=== PATIENT | female | born 1955 | race Caucasian/White ===

== ENCOUNTER 2022-12-26 11:35 | Outpatient (CLI) | payer MEDICARE, SELFPAY ==
--- NOTE | ~2022-12-26 | XR_ITS ---
EXAMINATION: XR hand BI arthritis min 3V DATE: 12/26/2022 12:27 INDICATION: Rheumatoid arthritis with rheumatoid factor. TECHNIQUE: 4 views of right hand and 4 views of left hand on 7 radiographs were obtained. COMPARISON: None. FINDINGS: RIGHT HAND: Bone alignment is normal. No fracture. There is moderate osteoarthrosis of first carpomet acarpal joint and mild osteoarthritis of third and fourth distal interphalangeal joints. LEFT HAND: Bone alignment is normal. No fracture. There is moderate osteoarthritis of first carpometa carpal joint and mild osteoarthritis of second distal interphalangeal joint. IMPRESSION: 1. Polyarticular osteoarthritis. No evidence of inflammatory arthropathy. Reviewed, dictated and finalized at location A.
--- NOTE | ~2022-12-26 | XR_ITS ---
EXAMINATION: XR foot RT standing 2V, XR foot LT standing 2V DATE: 12/26/2022 12:27 INDICATION: Rheumatoid arthritis with rheumatoid factor TECHNIQUE: 1. Standing dorsal plantar and lateral views of the right foot were obtained. 2. Standing dorsal plantar and lateral views of the left foot were obtained. COMPARISON: None. FINDINGS: Bilateral pes planus with flattening of the longitudinal arches and associated mild hindfoot valgus. No fractures. Relatively symmetric pattern of mild polyarticular osteoarthritis at the bilateral firs t metatarsophalangeal, navicular cuneiform and a few tarsometatarsal and interphalangeal joints. No e rosions identified to suggest inflammatory arthritis. Bilateral small to moderate Achilles and planta r calcaneal spurs. IMPRESSION: 1. Bilateral pes planus with mild polyarticular osteoarthritis in the mid and forefeet. No erosions t o suggest an inflammatory arthritis. Reviewed, dictated and finalized at location A. IMPRESSION: 1. Bilateral pes planus with mild polyarticular osteoarthritis in the mid and f orefeet. No erosions to suggest an inflammatory arthritis.
[2022-12-26 12:58] LABS: Hemoglobin 12.1 g/dL (12.0-15.0); Mean Corpuscular HGB Conc 31.8 g/dl (32-36); Mean Corpuscular Hemoglobin 30.7 pg (26-34); Mean Corpuscular Volume 96.4 fl (80-100); Mean Platelet Volume 8.8 fl (7.4-10.4); Platelet Count Result 406 k/mm3 (150-375); Red Blood Count 3.94 M/mm3 (4.2-5.4); White Blood Count 13.1 K/mm3 (4.5-10.0)
[2022-12-26 13:09] LABS: Appearance Urine Clear (Clear); Bilirubin Urine Negative (Negative); Blood Urine Negative (Negative); Color Urine Yellow (Yellow); Glucose Urine UA Negative (Negative); Ketones Urine Negative (Negative); Leukocyte Esterase Ur Negative LEU/UL (Negative); Nitrate Urine Negative (Negative); Protein Urine Negative (Negative); Specific Grav Ur 1.028 (1.001-1.035); pH Urine 5.5 (5.0-9.0)
[2022-12-26 13:11] LABS: Alanine Aminotransferase 28 U/L (6-35); Albumin Level 4.1 g/dL (3.5-5.1); Alkaline Phosphatase 167 U/L (38-126); Anion Gap 11 mmol/L (8-16); Aspartate Amino Transferase 21 U/L (14-36); Bilirubin,Total 0.4 mg/dL (0.2-1.3); Blood Urea Nitrogen 23 mg/dL (7-17); CRP 1.3 mg/dL (<1.0); Calcium 8.6 mg/dL (8.4-10.2); Carbon Dioxide 21 mmol/L (22-30); Chloride 106 mmol/L (98-107); Estimated Glomerular Filt Rate > 60; Glucose 99 mg/dL (65-110); Potassium 4.2 mmol/L (3.4-5.0); Sodium 138 mmol/L (137-145); Uric Acid 7.8 mg/dL (2.5-7.5)
[2022-12-26 13:13] LABS: Add Urine Microscopic? NO
[2022-12-26 14:07] LABS: Vitamin D 25 Hydroxy 36.5 ng/mL
[2022-12-26 14:10] LABS: Rheumatoid Factor > 120.0 IU/ML (<12)
[2022-12-26 15:11] LABS: Erythrocyte Sedimentation Rate 55 mm/hr (0-20)
[2022-12-30 20:49] LABS: Anti Cyclic Citrullinated Pept <16 Units (<20)
== END 2022-12-26 11:36 | disposition home or self-care (01) ==
PROVIDERS: Visit Provider Internal Medicine
DX: M05.79 Rheumatoid arthritis with rheumatoid factor of multiple sites without organ or systems involvement (principal); Z79.899 Other long term (current) drug therapy; Z71.89 Other specified counseling; M19.071 Primary osteoarthritis, right ankle and foot; M19.072 Primary osteoarthritis, left ankle and foot; M19.041 Primary osteoarthritis, right hand; M19.042 Primary osteoarthritis, left hand
CPT/HCPCS: 36415; 73130; 73620; 80053; 81003; 82306; 84550; 85027; 85652; 86038; 86039; 86140; 86200; 86430